=== PATIENT | male | born 2000 | race Caucasian/White ===

== ENCOUNTER 2020-03-05 19:52 | Outpatient (CLI) | payer OTHER | END 2020-03-05 19:53 | disposition critical access hospital (66) | LOC: EMS 19:52 | PROVIDERS: ATTEND Surgery | DX: M25.512 Pain in left shoulder (principal); M25.511 Pain in right shoulder; T23.171A Burn of first degree of right wrist, initial encounter; V48.5XXA Car driver injured in noncollision transport accident in traffic accident, initial encounter; Y92.410 Unspecified street and highway as the place of occurrence of the external cause | CPT/HCPCS: A0425; A0429 ==

== ENCOUNTER 2020-03-05 20:23 | Emergency (ER) | payer OTHER ==
[2020-03-05] MEDS ORDERED: TETANUS/DIPHTHERIA/PERTUSSIS 0.5 ML SYRINGE IM ONE (20:27)
[2020-03-05 20:34] VITALS: BP 152/89
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
--- NOTE | 2020-03-05 20:53 | XRAY Report ---
PROCEDURE: Shoulder 3 View RT INDICATIONS: shoulder inj TECHNIQUE: 4 views of the shoulder were acquired. COMPARISON: None. FINDINGS: Bones: No fractures or dislocations. No suspicious bony lesions. Visualized ribs appear intact. Soft tissues: No suspicious soft tissue calcifications. IMPRESSION: No acute fracture. No osseous lesion. If symptoms and/or clinical suspicion for patholog y continue, further assessment with repeat plain films, or advanced imaging (e.g., CT, MRI, or bone s can) is recommended for further assessment. Reviewed by: Richi Tenorio MD on 03/05/2020 8:51 PM PDT Approved by: Richi Tenorio MD on 03/05/2020 8:51 PM PDT Station ID: [id number]
== END 2020-03-05 21:19 | disposition home or self-care (01) ==
LOC: ED 20:23
DX: S46.911A Strain of unspecified muscle, fascia and tendon at shoulder and upper arm level, right arm, initial encounter (principal); T23.071A Burn of unspecified degree of right wrist, initial encounter; S60.812A Abrasion of left wrist, initial encounter; V48.5XXA Car driver injured in noncollision transport accident in traffic accident, initial encounter; Y92.410 Unspecified street and highway as the place of occurrence of the external cause; S05.11XA Contusion of eyeball and orbital tissues, right eye, initial encounter; Z23 Encounter for immunization
CPT/HCPCS: 90471; 99283

== ENCOUNTER 2021-01-23 14:00 | Outpatient (CLI) | payer OTHER ==
[2021-01-23 14:55] VITALS: BP 120/79
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
== END 2021-01-23 14:01 | disposition home or self-care (01) ==
LOC: SC 14:00
PROVIDERS: ATTEND Nurse Practitioner Family
DX: R06.83 Snoring (principal); G47.8 Other sleep disorders; R41.89 Other symptoms and signs involving cognitive functions and awareness; G47.10 Hypersomnia, unspecified; R06.81 Apnea, not elsewhere classified
CPT/HCPCS: 99203; 99212

== ENCOUNTER 2021-01-30 12:29 | Outpatient (CLI) | payer OTHER | END 2021-01-30 12:30 | disposition home or self-care (01) | LOC: SC 12:29 | PROVIDERS: ATTEND Nurse Practitioner Family | DX: R06.83 Snoring (principal); G47.10 Hypersomnia, unspecified; R41.89 Other symptoms and signs involving cognitive functions and awareness; G47.8 Other sleep disorders; R06.81 Apnea, not elsewhere classified | CPT/HCPCS: 95806 ==

== ENCOUNTER 2021-02-21 08:18 | Outpatient (CLI) | payer OTHER ==
--- NOTE | 2021-02-21 08:35 | SLEEP CARE CONSULTATION ---
Information from patient questionnaire entered by Joselyn Saez. I have reviewed and concur with the information entered by Joselyn Saez. This document represents the service I personally performed and the decisions made by , Sole Castorena ARNP. History of Present Illness Service Date and Time: 02/21/2021817 Initial [place] Sleepiness Scale score: 13 (in 2020) Current [place] Sleepiness Scale score: 13 Additional HPI information: AJ ELLIOTT returns for follow up and results of the recently performed home sleep study. Patient has a history of anxiety and depression. The patient was informed of the following findings: Patient had a poor study due to the extensive loss of pulse oximetry signal. Patient had no significant sleep disordered breathing noted with an AHI of 1.6 and jakob oxygen saturation of 82%. Recommendation was to repeat study. I explained the pathophysiology behind obstructive sleep apnea. Patient does not have sleep apnea and was advised how weight gain could increase the risk of developing sleep apnea in the future. Patient counseled not drink alcohol less than 4 hours before bedtime as it can increase snoring and apnea. Patient was cautioned about risks of drowsy driving until sleepiness symptoms resolve. Sleep Study - Results Type of Sleep Study: Home sleep study Prior sleep studies: No Polysomnography/Home Sleep Study results: Physician Impression: The quality of the study is poor due to extensive loss of pulse oximetry signal. The length of the study is adequate (> 240 minutes). Please also see the tabulated and graphic data. 1. No significant sleep disordered breathing, with an AHI of 1.6/hr and jakob SaO2 of 82%. During the study, the patient had 4 apneas (4 obstructive, 0 central, 0 mixed) and 1 hypopneas. The longest episode lasted 22.0 seconds. The few respiratory events occurred more frequently during supine sleep (supine AHI was 2.1 and non-supine, 0.83). 2. Hypoxemia (ICD-10 R09.02), mild, with the lowest oxygen saturation of 82 % and 35.0 minutes with SaO2 under 90%. Baseline oxygen saturation was normal (Average oxygen saturation was 93%). However, the pulse oximetry signal was not reliable. Recommendation: No treatment is necessary. However, given the poor quality, the home sleep apnea test should be repeated or an in-laboratory polysomnography performed. Allergies and Home Medications Home medication list reviewed: Yes (no changes) Review of Systems Review of systems same as previous: Yes (no changes) Physical Exam Heart Rate: 74 O2 Saturation: 99 Height: 6 ft Weight: 164 lb Body Mass Index: 22.2 BMI Classification: Healthy weight Impression and Plan 1. Suspected Obstructive Sleep Apnea-Hypopnea Syndrome, as suggested by a history of loud and irregular snoring, observed cessation of breath while asleep, gasping or choking in sleep, unrefreshed sleep, cognitive impairment, and excessive daytime sleepiness. Patient's home study was of poor quality due to significant pulse ox signal loss. After discussion, I recommend proceeding to polysomnography to confirm the diagnosis and to assess severity. I obtained agreement to proceed. The pathophysiology of obstructive sleep apnea-hypopnea syndrome was discussed with the patient and health risks of cardiovascular and cerebrovascular disease if not treated. 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 Patient agreed to plan. * Schedule polysomnography +- manual CPAP titration study and return in 1-2 weeks after the study to discuss result and initiate therapy. * Avoid long distance driving or driving when feeling sleepy. * Avoid alcohol, sedative and muscle relaxant around bedtime. * Maintain a healthy weight. * Review instructions provided by trained office staff on how to prepare for the sleep study. * Return for follow-up after sleep study completed. Visit Type: In Office Time Spent with Patient (minutes): 12 Provider Statement: I spent 100% of the Face to Face Visit with the patient with greater than 50% spent counseling the patient and coordination of care.
== END 2021-02-21 08:19 | disposition home or self-care (01) ==
LOC: SC 08:18
PROVIDERS: ATTEND Nurse Practitioner Family
DX: R06.83 Snoring (principal); R06.81 Apnea, not elsewhere classified; G47.8 Other sleep disorders; R41.89 Other symptoms and signs involving cognitive functions and awareness; G47.10 Hypersomnia, unspecified
CPT/HCPCS: 99212

== ENCOUNTER 2021-02-26 10:14 | Outpatient (CLI) | payer OTHER | END 2021-02-26 10:15 | disposition home or self-care (01) | LOC: SC 10:14 | PROVIDERS: ATTEND Nurse Practitioner Family | DX: Z53.9 Procedure and treatment not carried out, unspecified reason (principal) ==